=== PATIENT | female | born 1995 | race Caucasian/White ===

== ENCOUNTER 2016-09-08 22:48 | Emergency (ER) | payer OTHER ==
[~2016-09-08] VITALS: Ht 154.9 cm; Wt 92.0 kg
[2016-09-08 22:51] VITALS: Ht 154.9 cm; Wt 92.0 kg
[2016-09-08 23:52] LABS: URINE BLOOD (Dip) POC Negative (NEGATIVE)
[2016-09-09] MEDS ORDERED: KETOROLAC 30 MG INJ IM STA (00:58)
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
--- NOTE | 2016-09-09 01:11 | RADRPT ---
PROCEDURE: Lumbar Spine. CLINICAL INDICATION: Back pain. TECHNIQUE: Three views of the lumbar spine. COMPARISON: None available FINDINGS: The lumbar lordosis is preserved without spondylolisthesis. The vertebral body heights are maintaine d. No acute fracture or subluxation is seen. The patient is status post cholecystectomy. IMPRESSION: 1. Normal appearance of the lumbar spine. 2. Status post cholecystectomy. RPTAT: HTAR .Wild Norman MD, MD Date Time Electronically viewed and signed by .Wild Norman MD, on 09/09/2016 01:10 .R/
[2016-09-09] MEDS ORDERED: NAPR-260 PO (01:13)
[2016-09-09 01:21] VITALS: BP 132/72; PULSE 72; RESP 16; TEMP 98.6
== END 2016-09-09 01:23 | disposition home or self-care (01) ==
LOC: FTE 22:48
DX: M54.41 Lumbago with sciatica, right side (principal)
CPT/HCPCS: 72100; 81003; 96372; J1885; Z7502

== ENCOUNTER 2017-02-05 14:49 | Emergency (ER) | END 2017-02-05 18:20 | disposition home or self-care (01) | DX: F41.9 Anxiety disorder, unspecified (principal) | CPT/HCPCS: 82962; 93005; Z7502; Z7610 ==

== ENCOUNTER 2017-03-13 16:19 | Emergency (ER) | payer OTHER ==
[~2017-03-13] VITALS: Wt 92.3 kg
[~2017-03-13 16:19] MED LIST: NAPR-260 PO
[2017-03-13] MEDS ORDERED: KETOROLAC 30 MG INJ IM STA (17:47)
[2017-03-13] MEDS ORDERED: ACET500C5 PO (18:18)
[2017-03-13 18:59] LABS: BASOPHILS % 0.2 % (0.0-2.0); EOSINOPHILS % 0.1 % (0.0-7.0); HEMATOCRIT 36.8 % (37.0-47.0); HEMOGLOBIN 12.4 g/dl (12.0-16.0); LYMPHOCYTES # 2.7 10^3/ul (0.8-2.9); LYMPHOCYTES % 18.3 % (15.0-51.0); MEAN CORPUSCULAR HEMOGLOBIN 30.2 pg (29.0-33.0); MEAN CORPUSCULAR HGB CONC 33.7 g/dl (32.0-37.0); MEAN CORPUSCULAR VOLUME 89.8 fl (82.0-101.0); MEAN PLATELET VOLUME 9.5 fl (7.4-10.4); MONOCYTE # 0.5 10^3/ul (0.3-0.9); MONOCYTES % 3.6 % (0.0-11.0); NEUTROPHIL # 11.3 10^3/ul (1.6-7.5); NEUTROPHILS % 77.4 % (39.0-77.0); PLATELET COUNT 312 10^3/UL (140-415); RED CELL DISTRIBUTION WIDTH 12.2 % (11.5-14.5); WHITE BLOOD COUNT 14.6 10^3/ul (4.8-10.8)
--- NOTE | 2017-03-13 19:22 | RADRPT ---
PROCEDURE: US Obstetric less than 14 weeks. CLINICAL INDICATION: , vaginal bleeding TECHNIQUE: Transabdominal and transvaginal imaging of the pelvis was performed. Images are review ed on a high-resolution PACS workstation. COMPARISON: None available FINDINGS: Single intrauterine gestation is identified. heart rate is 137 bpm. [place]-rump length = 0.69 cm. Gestational age is 6 weeks 2 days and DANY is 11/04/2017 by ultrasound criteria. Bilateral ovaries are unremarkable. No ovarian torsion, adnexal mass or pelvic free fluid is seen. IMPRESSION: 1. Single live intrauterine with an estimated gestational age of 6 weeks 2 days by ultras ound criteria, as above. RPTAT: HDWR .London Panda MD, MD Date Time Electronically viewed and signed by .London Panda MD, on 03/13/2017 19:21 .R/
[2017-03-13 20:24] LABS: URINE BLOOD (Dip) POC Trace-intact (NEGATIVE)
--- NOTE | 2017-03-13 20:53 | ERD ---
ER Documentation Chief Complaint Chief Complaint fitch, neck pain, shoulder pain, bodyaches, chills HPI Patient is a 22-year-old female who presents emergency department for concerns of headache, neck pain, shoulder pain, generalized body aches and chills. Patient states she started having a headache 1 week ago. Patient states the pain comes and goes. Patient reports taking medication which she bought online from [place]. Patient does not recall the name. Patient denies any sudden, 10 out of 10, worsening pain. Patient also reports intermittent episodes of vomiting. Patient denies any blood or bile in her vomit. Reports neck pain. Patient denies any neck stiffness. Patient reports mild throat pain. Patient denies any abdominal pain, cough, rhinorrhea. Patient did report diarrhea which started today. Denies any recent travel or sick contacts. Patient does admit to recent stress at work and feels that this is contributing to her symptoms. ROS All systems reviewed and are negative except as per history of present illness. Medications Home Meds Active Scripts Acetaminophen* (Tylophen*) 500 Mg Capsule, 1 CAP PO Q6H Y for PAIN AND OR ELEVATED TEMP, #20 CAP Prov:RAHEEM BARBA PA-C 03/13/17 Naproxen* (Naprosyn*) 500 Mg Tablet, 500 MG PO BID Y for PAIN AND/OR INFLAMMATION, #30 TAB Prov:JARET FERREIRA PA-C 09/09/16 Allergies Allergies: Coded Allergies: No Known Allergy (Unverified , 09/08/16) PMhx/Soc History of Surgery: Yes (C/S X1, CHOLECYSTECTOMY) Anesthesia Reaction: No Hx Neurological Disorder: No Hx Respiratory Disorders: No Hx Cardiac Disorders: No Hx Psychiatric Problems: No Hx Miscellaneous Medical Probl: No Hx Alcohol Use: No Hx Substance Use: No Hx Tobacco Use: No Smoking Status: Never smoker Physical Exam Vitals Vital Signs Date Time Temp Pulse Resp B/P Pulse Ox O2 Delivery O2 Flow Rate FiO2 03/13/17 20:58 100.0 75 20 142/78 99 03/13/17 16:20 100.0 100 20 169/91 99 Physical Exam GENERAL: Well-developed, well-nourished female. Appears in no acute distress. HEAD: Normocephalic, atraumatic. No deformities or ecchymosis. EYE: Pupils equal, round, and reactive to light. EOMs intact. No conjunctival erythema. No eye discharge. ENT: External ear without any masses or tenderness. Auditory canals clear bilaterally. TM visualized bilaterally, non-erythematous, non-bulging. No hemotympanum noted bilaterally. Nasal mucosa pink with no discharge. Oropharynx is pink without any tonsillar erythema or exudates. No uvula deviation. No kissing tonsils. NECK: Supple. No meningismus. Normal ROM of the neck. Tender to palpation of bilateral trapezius muscles. LUNG: Clear to auscultation bilaterally. No rhonchi, wheezing, rales or coarse breath sounds. HEART: Regular rate and rhythm. No murmurs, rubs or gallops BACK: No midline tenderness. EXTREMITIES: Equal pulses bilaterally. No peripheral clubbing, cyanosis or edema. No unilateral leg swelling. NEUROLOGIC: Alert and oriented x3, cooperative. Mood and affect appropriate to situation. Cranial nerves II through XII are grossly intact. Normal speech. Motor exam: 5/5 strength in upper and lower extremities. Sensory exam: Sensation intact to light touch on all four extremities. Cerebellar function exam: No dysmetria on [id number] test. Steady gait. No pronator drift. SKIN: Normal color. Warm and dry. No rashes or lesions. Result Diagram: 03/13/171840 Results 24 hrs Laboratory Tests Test 03/13/17 18:41 03/13/17 20:22 White Blood Count 14.610^3/ul Red Blood Count 4.1010^6/ul Hemoglobin 12.4g/dl Hematocrit 36.8% Mean Corpuscular Volume 89.8fl Mean Corpuscular Hemoglobin 30.2pg Mean Corpuscular Hemoglobin Concent 33.7g/dl Red Cell Distribution Width 12.2% Platelet Count 02431^3/UL Mean Platelet Volume 9.5fl Neutrophils % 77.4% Lymphocytes % 18.3% Monocytes % 3.6% Eosinophils % 0.1% Basophils % 0.2% Nucleated Red Blood Cells % 0.0/100WBC Neutrophils # 11.310^3/ul Lymphocytes # 2.710^3/ul Monocytes # 0.510^3/ul Eosinophils # 0.010^3/ul Basophils # 0.010^3/ul Nucleated Red Blood Cells # 0.010^3/ul Beta HCG, Quantitative 62760.0mIU/ml Bedside Urine pH (LAB) 6.0 Bedside Urine Protein (LAB) 1+ Bedside Urine Glucose (UA) Negative Bedside Urine Ketones (LAB) 1+ Bedside Urine Blood Trace-intact Bedside Urine Nitrite (LAB) Negative Bedside Urine Leukocyte Esterase (L Negative Current Medications Medications (Trade) Dose Ordered Sig/Almaz Route PRN Reason Start Time Stop Time Status Last Admin Dose Admin Ketorolac Tromethamine (Toradol) 30 mg ONCE STAT IM 03/13/17 17:47 03/13/17 18:07 DC Procedures/MDM ED COURSE: The patient was stable throughout ED course. I kept the patient and/or family informed of laboratory and diagnostic imaging results throughout the ED course. DIAGNOSTIC IMAGING: Read by radiologist. Patient: SHARAN MALIK : 1995 Age: 22 Sex: F MR #: [id number] DOS: 03/13/17 1826 Ordering MD: RAHEEM BARBA PA-C Location: FTE Room/Bed: PROCEDURE: US Obstetric less than 14 weeks. CLINICAL INDICATION: , vaginal bleeding TECHNIQUE: Transabdominal and transvaginal imaging of the pelvis was performed. Images are reviewed on a high-resolution PACS workstation. COMPARISON: None available FINDINGS: Single intrauterine gestation is identified. heart rate is [address] [place]-rump length = 0.69 cm. Gestational age is 6 weeks 2 days and DANY is 11/04/2017 by ultrasound criteria. Bilateral ovaries are unremarkable. No ovarian torsion, adnexal mass or pelvic free fluid is seen. IMPRESSION: 1. Single live intrauterine with an estimated gestational age of 6 weeks 2 days by ultrasound criteria, as above. RPTAT: HDWR .London Panda MD, MD Date Time Electronically viewed and signed by .London Panda MD, MD on 03/13/2017 19: 21 .R/ CC: RAHEEM BARBA PA-C MEDICAL DECISION MAKING: Patient is a 22-year-old female who presents with numerous concerns including headache, neck pain, throat pain, generalized body aches. Vital signs were reviewed. Patient was noted to have a temperature 100 Fahrenheit. Patient was not hypoxic. Urine test came back to be positive. Patient did not know that she was . Toradol order was canceled and not given to the patient. Patient initially fitted that she wished to follow-up with her [employer] and did not want an ultrasound done. Prior to discharge patient changed her mind and decided she did want a pelvic ultrasound. Blood work was also obtained. CBC showed WBC count of 14.6. Elevated white count likely due to and recent episodes of vomiting. Hemoglobin was noted to be 12.4, hematocrit of 36.8[place] [address]. Pelvic ultrasound showed single live intrauterine with an estimated gestational age of 6 weeks and 2 days by ultrasound criteria. Patient denies any bleeding. Patient's blood type was noted to be O+. No indication for RhoGam was noted. Patient was advised to only take Tylenol for her symptoms. Patient was advised to refrain from taking medications not prescribed to her by a medical professional. Patient was advised to follow-up with [employer] [facility] in the next 2 days. Referral information provided. At this time, patient's presentation is most consistent with influenza-like symptoms and new onset . Low suspicion for meningitis, intracranial hemorrhage, pneumonia, strep pharyngitis, peritonsillar abscess, threatened , incomplete , subchorionic hematoma, preeclampsia, ectopic , molar . Patient was advised to monitor her blood pressure closely. Patient was advised to follow- up with her [employer] for her elevated blood pressure. PRESCRIPTION: Tylenol DISCHARGE: At this time, patient is stable for discharge and outpatient management. I have instructed the patient to follow-up with her OBGYN in 1-2 days. I have instructed the patient to promptly return to the ER at any time for any new or worsening symptoms including increased pain, nausea, vomiting, continued bleeding, weakness, syncope or fever. The patient and/or family expressed understanding of and agreement with this plan. All questions were answered. Home care instructions were provided. Patient's blood pressure was elevated (>120/80) but appears stable without evidence of hypertensive emergency, hypertensive urgency or end-organ failure. I had discussion with the patient about the risks of hypertension. I have advised the patient to follow up with his/her primary care physician for outpatient monitoring and treatment for hypertension in 2-3 days. I have instructed the patient to return to the ER for any new or worsening symptoms including chest pain, shortness of breath, headache, blurred vision, confusion, nausea, vomiting or LOC. Disclaimer: Inadvertent spelling and grammatical errors are likely due to EHR/ dictation software use and do not reflect on the overall quality of patient care. Also, please note that the electronic time recorded on this note does not necessarily reflect the actual time of the patient encounter. Departure Diagnosis: Primary Impression: test positive for incidental Additional Impression: Flu-like symptoms Condition: Stable Patient Instructions: Influenza (Adult), , New Dx Referrals: [facility] YOU HAVE RECEIVED A MEDICAL SCREENING EXAM AND THE RESULTS INDICATE THAT YOU DO NOT HAVE A CONDITION THAT REQUIRES URGENT TREATMENT IN THE EMERGENCY DEPARTMENT. FURTHER EVALUATION AND TREATMENT OF YOUR CONDITION CAN WAIT UNTIL YOU ARE SEEN IN YOUR DOCTORS OFFICE WITHIN THE NEXT 1-2 DAYS. IT IS YOUR RESPONSIBILITY TO MAKE AN APPOINTMENT FOR FOLOW-UP CARE. IF YOU HAVE A PRIMARY DOCTOR --you should call your primary doctor and schedule an appointment IF YOU DO NOT HAVE A PRIMARY DOCTOR YOU CAN CALL OUR PHYSICIAN REFERRAL HOTLINE AT IF YOU CAN NOT AFFORD TO SEE A PHYSICIAN YOU CAN CHOSE FROM THE FOLLOWING [facility] [address] [facility]. [facility] [address] [facility]. [facility] [address] [facility]. [facility] [address] [facility]. [facility] [address] [facility]. [facility]. [address] [facility]. [facility] YOU HAVE RECEIVED A MEDICAL SCREENING EXAM AND THE RESULTS INDICATE THAT YOU DO NOT HAVE A CONDITION THAT REQUIRES URGENT TREATMENT IN THE EMERGENCY DEPARTMENT. FURTHER EVALUATION AND TREATMENT OF YOUR CONDITION CAN WAIT UNTIL YOU ARE SEEN IN YOUR DOCTORS OFFICE WITHIN THE NEXT 1-2 DAYS. IT IS YOUR RESPONSIBILITY TO MAKE AN APPOINTMENT FOR FOLOW-UP CARE. IF YOU HAVE A PRIMARY DOCTOR --you should call your primary doctor and schedule and appointment IF YOU DO NOT HAVE A PRIMARY DOCTOR YOU CAN CALL OUR PHYSICIAN REFERRAL HOTLINE AT . IF YOU CAN NOT AFFORD TO SEE A PHYSICIAN YOU CAN CHOSE FROM THE FOLLOWING [facility] INSTITUTIONS: [facility] [address] [place] [address] [facility] [address] [place] [address] [facility] [address] [place] [address] [employer] [address] [facility] [address] [place] [address] OFFICE FAX , [facility] [address] [place], [place] [id number] [facility] [address] [place] [address] [address] ELIZABETH [facility] [address] [facility], [address] [address] [address] [facility] [address] [place] [address] [facility] [address] [place] [address] [phone] [facility] [address] - LISA ABRAMS [address], [facility] [address] [address] [address] [facility]. [address], [facility] [address] [address] [address] [place], [place] [id number] Additional Instructions: Call your primary care doctor/OBGYN TOMORROW for an appointment during the next 1-2 days.See the doctor sooner or return here if your condition worsens before your appointment time. Take Tylenol for your symptoms. Do not take any other medications without clearing it with the doctor. RAHEEM BARBA PA-C Mar 13, 2017 20:53
[2017-03-13 20:58] VITALS: BP 142/78; PULSE 75; RESP 20; TEMP 100
== END 2017-03-13 20:58 | disposition home or self-care (01) ==
LOC: FTE 16:19
DX: R51 Headache (principal); M54.2 Cervicalgia; M25.511 Pain in right shoulder; R07.0 Pain in throat; R11.10 Vomiting, unspecified; R10.2 Pelvic and perineal pain; Z33.1 Pregnant state, incidental
CPT/HCPCS: 36415; 76801; 76817; 81003; 84702; 85025; 86900; 86901; Z7502

== ENCOUNTER 2017-10-17 07:53 | Inpatient (IN) | END 2017-10-20 18:51 | disposition home or self-care (01) | DRG 766 ==

== ENCOUNTER 2017-11-29 01:08 | Emergency (ER) | END 2017-11-29 02:26 | disposition left against medical advice (07) ==

== ENCOUNTER 2017-12-27 03:40 | Inpatient (IN) | END 2017-12-31 16:55 | disposition home or self-care (01) | DRG 872 ==

== ENCOUNTER 2018-03-02 07:26 | Emergency (ER) | END 2018-03-02 09:09 | disposition home or self-care (01) ==